=== PATIENT | male | born 1955 | race Caucasian/White ===

== ENCOUNTER 2019-02-08 19:12 | Emergency (ER) | payer OTHER, SELFPAY ==
--- NOTE | 2019-02-08 19:13 | DI.CT.S_ITS ---
PROCEDURE: CT HEAD/BRAIN WO CON INDICATIONS: fall and intoxicated TECHNIQUE: Noncontrast 4.5 mm thick angled axial sections acquired from the foramen magnum to the vertex, with coronal and sagittal reformats. For radiation dose reduction, the following was used: automated exposure control, adjustment of mA and/or kV according to patient size. COMPARISON: [facility], CT, CT FACIAL BONES WO CON, 02/08/2019, 19:27. FINDINGS: Image quality: Excellent. CSF spaces: Basal cisterns are patent. No extra-axial fluid collections. Ventricles are normal in size and shape. Brain: No midline shift. No intracranial masses or hemorrhage. Hodges-white matter interface is normal. Skull and face: Calvarium and visualized facial bones are intact, without suspicious lesions. Sinuses: Visualized sinuses and mastoids are clear. IMPRESSION: 1. No acute intracranial process. Dictated by: Ariadna Delgado M.D. on 02/08/2019 at 20:27 Approved by: Ariadna Delgado M.D. on 02/08/2019 at 20:28
--- NOTE | 2019-02-08 19:13 | DI.CT.S_ITS ---
PROCEDURE: CT CERVICAL SPINE WO CON INDICATIONS: fall intoxicated TECHNIQUE: Noncontrast 3 mm thick sections acquired from the skull base to the T4 level. Sagittal and coronal reformats were then constructed. For radiation dose reduction, the following was used: automated exposure control, adjustment of mA and/or kV according to patient size. COMPARISON: None. FINDINGS: Image quality: Excellent. Bones: No fractures or dislocations. Visualized superior ribs are intact. Multilevel degenerative changes are present. Soft tissues: Prevertebral soft tissues are normal in thickness. No paravertebral hematomas. No apical pneumothoraces. IMPRESSION: Degenerative changes of visualized fracture. Dictated by: Ariadna Delgado M.D. on 02/08/2019 at 20:34 Approved by: Ariadna Delgado M.D. on 02/08/2019 at 20:36
[2019-02-08 19:14] VITALS: BP 118/88; PULSE 110; RESP 18; TEMP 37.1; O2SAT 87
--- NOTE | 2019-02-08 19:24 | ED_ITS ---
HPI - Fall General Chief Complaint: Fall Stated Complaint: Intoxicated, neck pain, L eye bruise, fell down Time Seen by Provider: 02/08/19 19:12 Source: EMS Mode of arrival: EMS Limitations: other (Intoxication) History of Present Illness HPI Narrative: Patient unable to provide any HPI. Was reported the patient was intoxicated and fell down the stairs and his boat. Unsure as to how long he was lying on the ground. He unsure as to how he fell. Arrived in a cervical collar not on a backboard. Modified trauma called. Related Data Home Medications Medication Instructions Recorded Confirmed Unobtainable 02/08/19 02/08/19 Allergies Allergy/AdvReac Type Severity Reaction Status Date / Time No Allergy Information Allergy Verified 02/08/19 19:20 Available Review of Systems Review of Systems ROS Unobtainable: Unobtainable due to medical condition Exam Initial Vital Signs Initial Vital Signs: Vital Signs Temperature 98.8 F 02/08/19 19:14 Pulse Rate 110 H 02/08/19 19:14 Respiratory Rate 18 02/08/19 19:14 Blood Pressure 118/88 02/08/19 19:14 Pulse Oximetry 87 L 02/08/19 19:14 Const General: well developed and well groomed Nutritional Appearance: average body habitus Limitations: altered mental status HENMT Ears: TM's normal bilaterally Face and sinus: abrasion (Around left eye) and no lacerations Teeth and gingiva: dentition normal Eyes Pupils: PERRL Chest Chest: No crepitus Resp Effort & Inspection: normal respiratory effort Auscultation: clear to auscultation bilaterally Cardio Rate: regular rate Rhythm: regular rhythm GI Inspection: non-distended Palpation: soft Back/Spine/Pelvis Cervical Spine: cervical ROM normal Skin Other: Abrasions around left eye Neuro General: moves all extremities and other (Intoxicated) Extrem General: normal to inspection and capillary refill normal Psych Appearance: grossly normal and well kempt [facility] Medical History Medical history unknown (Acute) Unknown family medical history (Acute) Surgical History (Updated 02/09/19 @ 02:30 by Jourdan Quezada DO) Surgical history unknown (Acute) Procedures FAST Exam FAST Exam 1: Fluid in Morison's pouch: No Fluid in Splenorenal Junction: No Fluid around bladder, Transverse view: No Fluid around bladder, Sagittal view: No Fluid in Pericardial Sac: No Gross Wall Motion Abnormality: No Study normal for this patient: Yes Images saved for further review: No Scores GCS [place] coma scale eye opening: To sound [place] coma scale verbal response: Words [place] coma scale motor response: Obey commands [place] coma scale total score: 12 Nexus Score for C-Spine Focal Neurologic deficit present: No Midline spinal tenderness present: No Altered level of conciousness present: Yes Intoxication present: Yes Distracting Injury Present: No Nexus Criteria for C-spine: 2 Course Orders Ordered: ED Orders 02/08/19 19:13 CT cervical spine wo con Stat CT head/brain wo con Stat 02/08/19 19:23 CT abdomen pelvis w con Stat CT facial bones wo con Stat XR chest 1V Stat 02/08/19 19:26 Complete Blood Count AUTO DIFF Stat Comprehensive Metabolic Panel Stat Ethanol (ETOH) Stat Partial Thromboplastin Time Stat Prothrombin Time INR Stat Type and Screen Stat Vital Signs - 8 hr 02/08/19 19:14 02/08/19 20:00 02/08/19 20:35 Temperature 98.8 F Pulse Rate 110 H 91 H 87 Respiratory Rate 18 28 H 30 H Blood Pressure 118/88 Blood Pressure [Left Arm] 126/85 119/84 Pulse Oximetry 87 L 93 95 02/08/19 21:00 02/08/19 22:00 02/09/19 02:38 Temperature Pulse Rate 96 H 87 106 H Respiratory Rate 16 23 18 Blood Pressure Blood Pressure [Left Arm] 118/87 119/88 121/81 Pulse Oximetry 95 97 97 MDM - Fall Lab Data Attestation: I reviewed the patient's lab results. Result diagrams: 02/08/19 19:26 02/08/19 19:26 Lab Results 02/08/19 02/08/19 02/08/19 Range/Units 19:26 19:26 19:26 WBC 7.3 (4.5-11.0) X10^3/uL RBC 5.39 (4.5-5.9) X10^6/uL Hgb 17.4 (13.5-17.5) g/dL Hct 51.9 (41-53) % MCV 96.3 (80-100) fL MCH 32.3 (26-34) PG MCHC 33.6 (30-36) % RDW 13.2 (11.6-14.8) % Plt Count 179 (150-400) X10^3/uL Neut % (Auto) 70.0 (50-75) % Lymph % (Auto) 22.0 L (25-40) % [place] % (Auto) 6.7 (3-14) % Eos % (Auto) 1.0 L (2-4) % Baso % (Auto) 0.3 (0-2) % Neut # (Auto) 5100 (3998-8984) /uL Lymph # (Auto) 1600 (2760-8223) /uL [place] # (Auto) 500 (0-900) /uL Eos # (Auto) 100 (0-450) /uL Baso # (Auto) 0 (0-100) /uL PT 11.9 (10.1-12.7) SECONDS INR 1.0 (0.9-1.3) APTT 31 (26.4-36.2) SECONDS Sodium 146 H (137-145) mmol/L Potassium 3.6 (3.4-5.1) mmol/L Chloride 104 (98-107) mmol/L Carbon Dioxide 25 (22-32) mmol/L BUN 13 (9-20) mg/dL Creatinine 1.10 (0.66-1.25) mg/dL Estimated GFR > 60.0 (>60) mL/min BUN/Creatinine Ratio 11.8 (6-22) Glucose 109 H (70-100) mg/dL Calcium 8.9 (8.4-10.2) mg/dL Total Bilirubin 0.5 (0.2-1.3) mg/dL AST 51 (17-59) IU/L ALT 40 (21-72) IU/L Alkaline Phosphatase 87 (38-126) U/L Total Protein 7.7 (6.3-8.2) g/dL Albumin 4.8 (3.5-5.0) g/dL Globulin 2.9 (1.7-4.1) g/dL Albumin/Globulin Ratio 1.7 (1.0-2.8) Ethyl Alcohol 368 mg/dL Blood Type Antibody Screen 02/08/19 Range/Units 19:26 WBC (4.5-11.0) X10^3/uL RBC (4.5-5.9) X10^6/uL Hgb (13.5-17.5) g/dL Hct (41-53) % MCV (80-100) fL MCH (26-34) PG MCHC (30-36) % RDW (11.6-14.8) % Plt Count (150-400) X10^3/uL Neut % (Auto) (50-75) % Lymph % (Auto) (25-40) % [place] % (Auto) (3-14) % Eos % (Auto) (2-4) % Baso % (Auto) (0-2) % Neut # (Auto) (1695-9458) /uL Lymph # (Auto) (2422-2847) /uL [place] # (Auto) (0-900) /uL Eos # (Auto) (0-450) /uL Baso # (Auto) (0-100) /uL PT (10.1-12.7) SECONDS INR (0.9-1.3) APTT (26.4-36.2) SECONDS Sodium (137-145) mmol/L Potassium (3.4-5.1) mmol/L Chloride (98-107) mmol/L Carbon Dioxide (22-32) mmol/L BUN (9-20) mg/dL Creatinine (0.66-1.25) mg/dL Estimated GFR (>60) mL/min BUN/Creatinine Ratio (6-22) Glucose (70-100) mg/dL Calcium (8.4-10.2) mg/dL Total Bilirubin (0.2-1.3) mg/dL AST (17-59) IU/L ALT (21-72) IU/L Alkaline Phosphatase (38-126) U/L Total Protein (6.3-8.2) g/dL Albumin (3.5-5.0) g/dL Globulin (1.7-4.1) g/dL Albumin/Globulin Ratio (1.0-2.8) Ethyl Alcohol mg/dL Blood Type AB Positive Antibody Screen Negative Imaging Data CT scan - head: Radiologist's impression: [address] [address] [address] Scan Report Signed Patient: Griffin Higuera#: [id number] : 2Acct:[id number] Age/Sex: 59 / MDate of Service: 02/08/19 Loc: ED Accession Number: [id number] Procedure: CT head/brain wo con Ordering Provider: Jourdan Quezada D.O. PROCEDURE: CT HEAD/BRAIN WO CON INDICATIONS: fall and intoxicated TECHNIQUE: Noncontrast 4.5 mm thick angled axial sections acquired from the foramen magnum to the vertex, with coronal and sagittal reformats. For radiation dose reduction, the following was used: automated exposure control, adjustment of mA and/or kV according to patient size. COMPARISON: [facility], CT, CT FACIAL BONES WO CON, 02/08/2019, 19:27. FINDINGS: Image quality: Excellent. CSF spaces: Basal cisterns are patent. No extra-axial fluid collections. Ventricles are normal in size and shape. Brain: No midline shift. No intracranial masses or hemorrhage. Hodges-white matter interface is normal. Skull and face: Calvarium and visualized facial bones are intact, without suspicious lesions. Sinuses: Visualized sinuses and mastoids are clear. IMPRESSION: 1. No acute intracranial process. Dictated by: Ariadna Delgado M.D. on 02/08/2019 at 20:27 Approved by: Ariadna Delgado M.D. on 02/08/2019 at 20:28 CT cervical spine: Radiologist's impression: [place] [address] CT Scan Report Signed Patient: Theodore Higuera#: [id number] : 02/08/1960cct:[id number] Age/Sex: 59 / MDate of Service: 02/08/19 Loc: ED Accession Number: [id number] Procedure: CT cervical spine wo con Ordering Provider: Jourdan Quezada D.O. PROCEDURE: CT CERVICAL SPINE WO CON INDICATIONS: fall intoxicated TECHNIQUE: Noncontrast 3 mm thick sections acquired from the skull base to the T4 level. Sagittal and coronal reformats were then constructed. For radiation dose reduction, the following was used: automated exposure control, adjustment of mA and/or kV according to p atient size. COMPARISON: None. FINDINGS: Image quality: Excellent. Bones: No fractures or dislocations. Visualized superior ribs are intact. Multilevel degenerative changes are present. Soft tissues: Prevertebral soft tissues are normal in thickness. No paravertebral hematomas. No apical pneumothoraces. IMPRESSION: Degenerative changes of visualized fracture. Dictated by: Ariadna Delgado M.D. on 02/08/2019 at 20:34 Approved by: Ariadna Delgado M.D. on 02/08/2019 at 20:36 CT scan - abdomen: Radiologist's impression: Griffin Higueran 63 M [address] [address] [address] Scan Report Signed Patient: Griffin HigueraMR#: [id number] : 02/08/1960cct:[id number] Age/Sex: 59 / MDate of Service: 02/08/19 Loc: ED Accession Number: [id number] Procedure: CT abdomen pelvis w con Ordering Provider: Jourdan Quezada D.O. PROCEDURE: CT ABDOMEN PELVIS W CON INDICATIONS: fall with abd pain and drunk TECHNIQUE: After the administration of intravenous contrast, 5 mm thick sections acquired from the diaphragms to the symphysis. 2.5 mm thick coronal and sagittal reformats were acquired. Optional 10-minute delayed imaging may be performed from the kidneys to the bladder. For radiation dose reduction, the following was used: automated exposure control, adjustment of mA and/or kV according to patient size. COMPARISON: None. FINDINGS: Image quality: Excellent. ABDOMEN: Lung bases: Lung bases are clear. Heart size is normal. No pericardial effusion. Inferior ribs are intact. No basal pleural effusions or pneumothorax. Solid organs: Liver is normal in size and enhancement, without lacerations. Significant steatosis is present. Gallbladder is unremarkable. Biliary system is non- dilated. Pancreas enhances normally, without transection. Spleen is normal in size and enhancement, without lacerations. No adrenal hematomas. Both kidneys enhance normally, without hydronephrosis or lacerations. Peritoneum and bowel: No free fluid or air. Unenhanced bowel loops demonstrate normal wall thickness and caliber. Colonic diverticula are present without associated inflammatory change. Nodes and vessels: No retroperitoneal or mesenteric adenopathy. Aorta and inferior vena cava are normal in size and enhancement. Miscellaneous: No ventral hernias. PELVIS: Genitourinary: Bladder wall thickness is normal. Miscellaneous: No inguinal hernias or adenopathy. Bones: Pelvic ring and hip joints appear intact. No vertebral compression fractures. Bilateral pars defect is noted at L5 with grade 1 anterolisthesis. Degenerative changes are present within the lumbar spine including prominent disc space narrowing at L2-3. IMPRESSION: 1. No acute osseous or visceral injury within the abdomen or pelvis. 2. Hepatic steatosis. 3. Diverticulosis. Dictated by: Ariadna Delgado M.D. on 02/08/2019 at 20:30 Approved by: Ariadna Delgado M.D. on 02/08/2019 at 20:34 CT face: Radiologist's impression: Griffin Higuera Benigno 63 M 1955 [place] [address] CT Scan Report Signed Patient: Griffin HigueraMR#: [id number] : 02/08/1960cct:[id number] Age/Sex: 59 / MDate of Service: 02/08/19 Loc: ED Accession Number: [id number] Procedure: CT facial bones wo con Ordering Provider: Jourdan Quezada D.O. PROCEDURE: CT FACIAL BONES WO CON INDICATIONS: facial injury after fall TECHNIQUE: Noncontrast 2.5 mm thick axial images acquired from the mandible through the frontal sinuses, with coronal and sagittal reformatting. For radiation dose reduction, the following was used: automated exposure control, adjustment of mA and/or kV according to patient size. COMPARISON: [facility], CT, CT HEAD/BRAIN WO CON, 02/08/2019, 19:27. FINDINGS: Image quality: Excellent. Bones and teeth: Orbital gutiérrez are intact. Sinus gutiérrez show no fracture or deformity. Nasal bones and septum are intact. Visualized portions of the mandible demonstrate no fractures or subluxation. Zygomatic arches are intact. Pterygoid plates are intact. Visualized portions of the skull base and auditory canals are intact. Sinuses: Paranasal sinuses are aerated, without fluid levels, mucosal thickening, or mucoceles. Mastoid air cells are aerated. Soft tissues: No edema, masses, or fluid collections. No enlarged lymph nodes. No soft tissue lacerations or debris. Vascular: Visualized vascular structures appear normal in the absence of contrast. Bony vascular foramina and canals are intact. IMPRESSION: No visualized fracture. Dictated by: Ariadna Delgado M.D. on 02/08/2019 at 20:29 Approved by: Ariadna Delgado M.D. on 02/08/2019 at 20:30 Chest x-ray: Radiologist's impression: [address] [address] XRay Report Signed Patient: Theodore Higuera#: [id number] : 2Acct:[id number] Age/Sex: 59 / MDate of Service: 02/08/19 Loc: ED Accession Number: [id number] Procedure: XR chest 1V Ordering Provider: Jourdan Quezada D.O. PROCEDURE: XR CHEST 1V INDICATIONS: fall TECHNIQUE: One view of the chest was acquired. COMPARISON: None. FINDINGS: Surgical changes and devices: None. Lungs and pleura: Lungs are clear. No pleural effusions or pneumothorax. Mediastinum: Mediastinal contours appear normal. Heart size is normal. Bones and chest wall: No suspicious bony lesions. Overlying soft tissues appear unremarkable. IMPRESSION: No acute pulmonary process. Dictated by: Ariadna Delgado M.D. on 02/08/2019 at 20:25 Approved by: Ariadna Delgado M.D. on 02/08/2019 at 20:26 [facility] Narrative Medical decision making narrative: Patient arrived intoxicated and in a cervical collar. His fast exam was negative. GCS of 12. CT scan showed no signs of acute pathology. A friend of the patient is eventually arrived stating that the patient is resident [place] is only visiting this area to deal with some issues with his boat. His friend states that he found the patient laying on the ground next to the stairs that lead up to his boat. Unsure the exact mechanism of the fall however I do suspect patient was intoxicated. After several hours in the emergency department the patient did become more sober. He states he does not remember falling. He walked around the emergency department without any problems. He was not stumbling. He was alert and oriented x3. He walked to the bathroom without problems. Tolerate oral intake. We did discuss his injuries. Informed him that he did fall. We did discuss the bruising on his face. He stated like he felt comfortable going home. He stated that he knew where he was going. Patient was clinically sober to my opinion and capacity to make decisions. He was given return precautions and follow-up instructions. He expressed understanding and agreement this plan. Patient's prolonged length of stay was secondary to waiting for him to sober. Discharge Plan Departure Patient Disposition: Home Clinical Impression: Abrasion of skin Alcohol intoxication Qualifiers: Complication of substance-induced condition: with unspecified complication Qualified Code(s): F10.929 - Alcohol use, unspecified with intoxication, unspecified Fall Qualifiers: Encounter type: initial encounter Qualified Code(s): W19.XXXA - Unspecified fal l, initial encounter Instructions: Alcohol Use Disorder, Closed Head Injury, DI for Abrasion Activity Restrictions/Additional Instructions: No driving for the next 24 hours or in the future if you partake in intoxicating substances. Recommend you place ice over the left side your face where the bruising is. I would not be surprised if the bruising worsens over the next couple days. Contact your primary provider when you return home. Return to the emergency department for any new or worsening symptoms Prescriptions: No Action Unobtainable RF: 0
[2019-02-08 19:41] LABS: Add Manual Diff / Slide Review NO; Basophils Absolute Auto 0 /uL (0-100); Basophils Percent Auto 0.3 % (0-2); Eosinophils Absolute Auto 100 /uL (0-450); Hematocrit 51.9 % (41-53); Hemoglobin 17.4 g/dL (13.5-17.5); Lymphocytes Absolute Auto 1600 /uL (1100-4500); Mean Corpuscular HGB Conc 33.6 % (30-36); Mean Corpuscular Hemoglobin 32.3 PG (26-34); Mean Corpuscular Volume 96.3 fL (80-100); Monocytes Absolute Auto 500 /uL (0-900); Monocytes Percent Auto 6.7 % (3-14); Neutrophils Absolute Auto 5100 /uL (1500-7000); Platelet Count 179 X10^3/uL (150-400); Red Blood Cell Count 5.39 X10^6/uL (4.5-5.9); Red Cell Distribution Width 13.2 % (11.6-14.8); White Blood Cell Count 7.3 X10^3/uL (4.5-11.0)
[2019-02-08 19:47] LABS: Prothrombin Time 11.9 SECONDS (10.1-12.7)
[2019-02-08 19:50] LABS: PTT Partial Thromboplastin Tim 31 SECONDS (26.4-36.2)
[2019-02-08 19:51] LABS: Alanine Aminotransferase 40 IU/L (21-72); Albumin 4.8 g/dL (3.5-5.0); Albumin Globulin Ratio 1.7 (1.0-2.8); Alkaline Phosphatase 87 U/L (38-126); Aspartate Aminotransferase 51 IU/L (17-59); BUN Creatinine Ratio 11.8 (6-22); Bilirubin Total 0.5 mg/dL (0.2-1.3); Blood Urea Nitrogen 13 mg/dL (9-20); Calcium 8.9 mg/dL (8.4-10.2); Carbon Dioxide 25 mmol/L (22-32); Chloride 104 mmol/L (98-107); Estimated Glomerular Filt Rate > 60.0 mL/min (>60); Globulin 2.9 g/dL (1.7-4.1); Glucose 109 mg/dL (70-100); HEMOLYSIS < 15 (0-50); Potassium 3.6 mmol/L (3.4-5.1); Sodium 146 mmol/L (137-145); Total Protein 7.7 g/dL (6.3-8.2)
[2019-02-08 20:00] VITALS: BP 126/85; PULSE 91; RESP 28; O2SAT 93
[2019-02-08 20:35] VITALS: BP 119/84; PULSE 87; RESP 30; O2SAT 95
[2019-02-08 20:58] LABS: Ethanol (ETOH) 368 mg/dL
[2019-02-08 21:00] VITALS: BP 118/87; PULSE 96; RESP 16; O2SAT 95
[2019-02-08 22:00] VITALS: BP 119/88; PULSE 87; RESP 23; O2SAT 97
[2019-02-09 02:38] VITALS: BP 121/81; PULSE 106; RESP 18; O2SAT 97
--- NOTE | 2019-02-09 04:32 | PC.NURSE ---
Pt declined DC vital signs.
== END 2019-02-09 04:32 | disposition home or self-care (01) ==
PROVIDERS: Emergency Provider Emergency Medicine
DX: S09.8XXA Other specified injuries of head, initial encounter (principal); M54.2 Cervicalgia; R10.84 Generalized abdominal pain; F10.929 Alcohol use, unspecified with intoxication, unspecified; W10.8XXA Fall (on) (from) other stairs and steps, initial encounter; Y90.8 Blood alcohol level of 240 mg/100 ml or more
CPT/HCPCS: 36591; 70450; 70486; 71045; 72125; 74177; 80053; 80320; 85025; 85610; 85730; 86850; 86900; 86901; 99283; 99284; Q9967

== ENCOUNTER 2019-02-17 18:48 | Emergency (ER) | payer OTHER, SELFPAY ==
[2019-02-17 18:57] VITALS: BP 123/87; PULSE 94; RESP 18; TEMP 36.7; O2SAT 94; BMI 25.8
--- NOTE | 2019-02-17 19:01 | ED_ITS ---
HPI - Medical Clearance <RAUDEL Earl - Last Filed: 02/17/19 22:28> General Chief complaint: Medical Clearance Stated complaint: Fit for Correction Time Seen by Provider: 02/17/19 18:54 Source: police Mode of arrival: other Limitations: other (ETOH intoxification) History of Present Illness HPI Narrative: 63-year-old male arrives in custody for a check as patient has been drinking alcohol and stated he took a hydrocodone this afternoon, he usually takes around 1400 which was the time that he has been arrested for. The officer was concerned that he was mixing narcotics and alcohol, and is requesting medical clearance. Patient is clearly intoxicated during interview and is a poor historian. Please softener states he has been cooperative in police custody for the past 6 hours. No evidence of vomiting or syncope. Home Medications Medication Instructions Recorded Confirmed Unobtainable 02/08/19 02/08/19 Allergies Allergy/AdvReac Type Severity Reaction Status Date / Time No Allergy Information Allergy Verified 02/08/19 19:20 Available Review of Systems <RAUDEL Earl - Last Filed: 02/17/19 22:28> Review of Systems REVIEW OF SYSTEMS: GENERAL: Denies recent illness. HENT: No head trauma. CARDIOVASCULAR: No syncope reported. RES: No apnea reported. GASTROINTESTINAL: No vomiting reported. INTEGUMENTARY: No complains of laceration. NEURO: No evidence of syncope. PSYCH: Patient is intoxicated. PFSH <RAUDEL Earl - Last Filed: 02/17/19 22:28> Medical History Medical history unknown (Acute) Unknown family medical history (Acute) Surgical History Surgical history unknown (Acute) Social History Smoking Status: Never smoker Social History Smoking Status: Never smoker Exam <RAUDEL Earl - Last Filed: 02/17/19 22:28> Initial Vital Signs Initial Vital Signs: Vital Signs Temperature 98.1 F 07/17/19 18:57 Pulse Rate 94 H 02/17/19 18:57 Respiratory Rate 18 02/17/19 18:57 Blood Pressure 123/87 02/17/19 18:57 Pulse Oximetry 94 02/17/19 18:57 PHYSICAL EXAMINATION: GENERAL: Well groomed, alert, and cooperative. Answers questions promptly and appropriately. Vital signs noted. HENT: Normocephalic, atraumatic. Ear canals patent. Oral mucosa is pink and moist. EYES: PERRLA, EOMIS, Conjunctiva pink, sclera white, no periorbital swelling. CHEST: Normal to inspection and without deformities. CARDIOVASCULAR: S1 and S2 sounds normal. Regular rate and rhythm, no murmurs, clicks, or bruits. No pedal edema. RESPIRATORY: Normal respiratory rate, trachea midline, airway patent. No st ridor, nasal flaring or accessory muscle use. Lungs are clear in all torres without wheeze, rhonchi, or crackles. GASTROINTESTINAL: Bowel sounds normoactive. Abdomen is soft and non-tender. No organomegaly. MUSCULOSKELETAL: Normal gait and coordination. Equal tone and mass bilaterally. EXTREMITIES: CMS intact. Moves all extremities. SKIN: Warm, dry, soft, appropriate color for ethnicity. No lesions, rashes, or wounds. NEURO: Alert and Oriented X 2. Patient is acutely intoxicated. However is not slurring speech at this time. PSYCH: Patient appears acutely intoxicated but follows simple commands <Jourdan Quezada DO - Last Filed: 02/17/19 22:32> Initial Vital Signs Initial Vital Signs: Vital Signs Temperature 98.1 F 02/17/19 18:57 Pulse Rate 94 H 02/17/19 18:57 Respiratory Rate 18 02/17/19 18:57 Blood Pressure 123/87 02/17/19 18:57 Pulse Oximetry 94 02/17/19 18:57 [facility] - Medical Clearance <RAUDEL Earl - Last Filed: 02/17/19 22:28> Medical Records Attestation: I reviewed the patient's medical records. Lab Data Attestation: I reviewed the patient's lab results. [facility] Narrative Medical decision making narrative: CIWA score of 0. While patient appears currently intoxicated, he is not apneic and exam reveals no significant neurological deficits. There is very little concern for interaction between a narcotic and alcohol, especially since almost 6 hours have passed before the possible combination. As well as, the combination being unknown. Discharge Plan Departure Patient Disposition: Home Clinical Impression: Medical clearance for incarceration Discharge Date/Time: 02/17/19 19:12 Interventions: ED Discharge Assessment Last Done: 02/17/19 19:12 Activity Restrictions/Additional Instructions: Thank you for entrusting me with your care today. As discussed, you are medically clear to remain in police custody. We encouraged you to decrease her alcohol intake with the help of your primary care provider. Please do not make alcohol and narcotics, this could be detrimental to your health. Return to the emergency department if you develops syncope, chest pain, shortness of breath, or high fevers. Prescriptions: No Action Unobtainable RF: 0 <Jourdan Quezada DO - Last Filed: 02/17/19 22:32> [facility] Rudy Attestation: I was available for consultation during this patient's emergency department encounter
== END 2019-02-17 19:12 | disposition home or self-care (01) ==
PROVIDERS: Emergency Provider Nurse Practitioner
DX: F10.929 Alcohol use, unspecified with intoxication, unspecified (principal)
CPT/HCPCS: 99282